=== PATIENT | male | born 1990 | race Caucasian/White ===

== ENCOUNTER → 2017-07-29 | Outpatient (CLI) | payer BC ==
[2017-07-29 14:14] LABS: BASO # 0.1 (0.0-0.2); BASO % 0.7 % (0.0-2.0); EOS # 0.2 (0.0-0.7); EOS % 1.8 % (0-4.0); GRAN # 6.7 (1.4-6.5); GRAN % 63.5 % (42.2-75.2); HEMATOCRIT 47.4 % (42.0-52.0); HEMOGLOBIN 15.9 g/dl (13.5-18.0); LYMPH # 2.6 (1.2-3.4); LYMPH % 24.9 % (20.0-51.0); MEAN CELL VOLUME 89 fl (80.0-100.0); MEAN CORPUSCULAR HEMOGLOBIN 30 pg (27.0-31.0); MEAN CORPUSCULAR HGB CONC 34 g/dl (33.0-37.0); MEAN PLATELET VOLUME 8.8 fl (7.4-10.4); MONO # 0.9 (0.1-0.6); MONO % 8.5 % (1.7-9.3); PLATELET COUNT 239 K/mm3 (130-400); REDCELL DISTRIBUTION WIDTH-CV 13.2 % (11.5-14.5); WHITE BLOOD COUNT 10.5 K/mm3 (4.8-10.8)
[2017-07-29 15:27] LABS: INR 3.1 (0.8-3.0); PROTHROMBIN TIME 36.2 SECONDS (9.7-12.8)
== END ==
LOC: COL.LAB 13:33
PROVIDERS: Physician Assistant
DX: R06.00 Dyspnea, unspecified (principal)

== ENCOUNTER 2018-03-10 21:24 | Emergency (ER) | payer BC ==
[~2018-03-10] VITALS: Ht 177.8 cm; Wt 134.1 kg
[2018-03-10 21:30] VITALS: BP 144/87; TEMP 97.5
[2018-03-10] MEDS ORDERED: HUMIRA40 MG/0.8 SQ (21:46)
[2018-03-10] MEDS ORDERED: COUMADIN 5MG5 MG/TAB PO (21:46)
[2018-03-10 22:17] LABS: PROTHROMBIN TIME 103.3 SECONDS (9.7-12.8)
[2018-03-10 22:18] LABS: INR 9.1 (0.8-3.0)
[2018-03-10] MEDS ORDERED: NORCO 325 MG-51 TAB PO (22:46)
[2018-03-10 23:30] VITALS: PULSE 78
== END 2018-03-10 23:19 | disposition home or self-care (01) ==
LOC: COL.ER 21:24
PROVIDERS: Emergency Medicine
DX: S80.12XA Contusion of left lower leg, initial encounter (principal); R79.1 Abnormal coagulation profile; R60.9 Edema, unspecified; Z79.01 Long term (current) use of anticoagulants; W01.10XA Fall on same level from slipping, tripping and stumbling with subsequent striking against unspecified object, initial encounter; Y92.009 Unspecified place in unspecified non-institutional (private) residence as the place of occurrence of the external cause

== ENCOUNTER → 2018-03-19 | Outpatient (CLI) | payer BC ==
[~2018-03-19] MED LIST: COUMADIN 5MG5 MG/TAB PO; HUMIRA40 MG/0.8 SQ; NORCO 325 MG-51 TAB PO
[2018-03-19 19:00] LABS: INR 5.8 (0.8-3.0); PROTHROMBIN TIME 65.6 SECONDS (9.7-12.8)
== END ==
LOC: COL.LAB 17:48
PROVIDERS: Family Medicine
DX: Z51.81 Encounter for therapeutic drug level monitoring (principal); Z79.01 Long term (current) use of anticoagulants

== ENCOUNTER → 2018-03-25 | Outpatient (CLI) | payer BC ==
[2018-03-25 18:54] LABS: INR 4.6 (0.8-3.0)
[2018-03-25 19:30] LABS: PROTHROMBIN TIME 51.9 SECONDS (9.7-12.8)
== END ==
LOC: COL.LAB 17:54
PROVIDERS: Family Medicine
DX: D68.8 Other specified coagulation defects (principal)

== ENCOUNTER → 2018-04-03 | Outpatient (CLI) | payer BC ==
[2018-04-03 18:31] LABS: PROTHROMBIN TIME 62.6 SECONDS (9.7-12.8)
[2018-04-03 19:10] LABS: INR 5.5 (0.8-3.0)
== END ==
LOC: COL.LAB 17:43
PROVIDERS: Family Medicine
DX: Z79.01 Long term (current) use of anticoagulants (principal)

== ENCOUNTER → 2018-04-10 | Outpatient (CLI) | payer BC ==
[2018-04-10 18:08] LABS: INR 4.1 (0.8-3.0)
[2018-04-10 20:38] LABS: PROTHROMBIN TIME 46.6 SECONDS (9.7-12.8)
== END ==
LOC: COL.LAB 17:40
PROVIDERS: Family Medicine
DX: D68.8 Other specified coagulation defects (principal)

== ENCOUNTER → 2018-04-15 | Outpatient (CLI) | payer BC ==
[2018-04-15 16:58] LABS: INR 4.2 (0.8-3.0)
[2018-04-15 17:09] LABS: PROTHROMBIN TIME 47.7 SECONDS (9.7-12.8)
== END ==
LOC: COL.LAB 15:22
PROVIDERS: Family Medicine
DX: D68.8 Other specified coagulation defects (principal)

== ENCOUNTER 2018-04-29 21:11 | Emergency (ER) | payer BC ==
[~2018-04-29] VITALS: Ht 177.8 cm; Wt 140.9 kg
[2018-04-29 21:14] VITALS: BP 160/102; TEMP 98.3
[2018-04-29 21:52] LABS: HEMATOCRIT 37.4 % (42.0-52.0); HEMOGLOBIN 12.4 g/dl (13.5-18.0); MEAN CELL VOLUME 88 fl (80.0-100.0); MEAN CORPUSCULAR HEMOGLOBIN 29 pg (27.0-31.0); MEAN CORPUSCULAR HGB CONC 33 g/dl (33.0-37.0); MEAN PLATELET VOLUME 9.3 fl (7.4-10.4); PLATELET COUNT 239 K/mm3 (130-400); RED BLOOD COUNT 4.26 M/mm3 (4.20-5.60); REDCELL DISTRIBUTION WIDTH-CV 13.6 % (11.5-14.5)
[2018-04-29 21:54] LABS: INR 3.2 (0.8-3.0); PROTHROMBIN TIME 36.2 SECONDS (9.7-12.8)
[2018-04-29 21:58] LABS: BILIRUBIN,TOTAL 0.4 mg/dL (0.0-1.0); CALCIUM 8.8 mg/dL (8.4-10.2); CREATININE, serum 1.27 mg/dL (0.66-1.25); POTASSIUM 3.8 mmol/L (3.4-5.0); TOTAL PROTEIN 7.1 gm/dL (6.4-8.2)
[2018-04-29 22:35] VITALS: PULSE 80
== END 2018-04-29 22:35 | disposition home or self-care (01) ==
LOC: COL.ER 21:11
PROVIDERS: Physician Assistant
DX: S70.11XA Contusion of right thigh, initial encounter (principal); R79.1 Abnormal coagulation profile; Z79.01 Long term (current) use of anticoagulants; Z86.718 Personal history of other venous thrombosis and embolism; Z86.711 Personal history of pulmonary embolism; V87.8XXA Person injured in other specified noncollision transport accidents involving motor vehicle (traffic), initial encounter

== ENCOUNTER 2018-06-06 13:27 | Outpatient (RCR) | payer BC ==
[2018-05-09 18:53] LABS: INR 4.9 (0.8-3.0)
[2018-05-09 18:55] LABS: PROTHROMBIN TIME 55.8 SECONDS (9.7-12.8)
[2018-05-23 18:31] LABS: INR 3.8 (0.8-3.0); PROTHROMBIN TIME 42.7 SECONDS (9.7-12.8)
[2018-06-06 14:11] LABS: PROTHROMBIN TIME 22.6 SECONDS (9.7-12.8)
== END 2018-08-07 | disposition home or self-care (01) ==
LOC: COL.LAB
PROVIDERS: Family Medicine
DX: D68.59 Other primary thrombophilia (principal)

== ENCOUNTER 2018-06-11 17:46 | Outpatient (RCR) | payer BC ==
[2018-06-11 18:40] LABS: INR 2.4 (0.8-3.0); PROTHROMBIN TIME 27.2 SECONDS (9.7-12.8)
== END 2018-09-09 | disposition home or self-care (01) ==
LOC: COL.LAB
PROVIDERS: Family Medicine
DX: D68.59 Other primary thrombophilia (principal)